=== PATIENT | female | born 1955 | race Caucasian/White ===

== ENCOUNTER 2024-07-20 19:34 | Emergency (ER) | payer MEDICARE, SELFPAY ==
--- NOTE | ~2024-07-20 | XR_ITS ---
CLINICAL HISTORY: pain 3 view, pelvis and left hip Comparison: None Findings: There is no fracture or dislocation. Joint spaces appear normal. No lytic or sclerotic lesion is seen. There is lower lumbar facet osteoarthritis. IMPRESSION: No acute findings. This document has been electronically signed by: Dustin Lindsay MD on 07/20/2024 23:27:05
[2024-07-20 19:56] VITALS: BP 156/80; PULSE 93; RESP 22; TEMP 36.8; O2SAT 95
[2024-07-20 20:00] VITALS: BMI 22.0
--- NOTE | 2024-07-20 20:18 | ECG_ITS ---
Test Reason : EPIGASTRIC PAIN Blood Pressure : */* mmHG Vent. Rate : 96 BPM Atrial Rate : 96 BPM P-R Int : 114 ms QRS Dur : 66 ms QT Int : 338 ms P-R-T Axes : 24 8 32 degrees QTcB Int : 427 ms Artifact in tracing Normal sinus rhythm Normal ECG No previous ECGs available Referred By: Anjana Jimenez Electronically Signed By: DAMIAN TREVIZO
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
[2024-07-20 21:27] LABS: MANUAL DIFF FLAG NO
[2024-07-20 21:29] LABS: Basophils Absolute Auto 0.1 X10*3/uL (0.0-0.2); Basophils Percent Auto 0.7 % (0-2); Eosinophils Absolute Auto 0.3 X10*3/uL (0.0-0.4); Eosinophils Percent Auto 2.4 % (0-4); Hematocrit 35.6 % (37.0-47.0); Hemoglobin 12.3 g/dl (12.0-16.0); Imm Gran Abs Auto 0.04 X10*3/uL (0.00-0.03); Imm Gran Pct Auto 0.3 % (0.0-0.4); Lymphocytes Absolute Auto 4.1 X10*3/uL (1.2-4.9); Lymphocytes Percent Auto 35.1 % (20-40); Mean Corpuscular HGB Conc 34.6 g/dl (31.0-35.0); Mean Corpuscular Volume 95.4 fL (80.0-98.0); Mean Platelet Volume 9.3 fL (9.4-12.3); Monocytes Percent Auto 8.8 % (2-11); Neutrophils Absolute Auto 6.1 x10*3/uL (2.0-8.3); Neutrophils Percent Auto 52.7 % (45-73); Platelet Count 334 X10*3/uL (160-400); Red Blood Count 3.73 X10*6/uL (4.20-5.50); Red Cell Distribution Width 13.2 % (11.0-16.0); White Blood Count 11.6 X10*3/uL (4.8-10.8)
[2024-07-20 21:32] LABS: Appearance Urine Cloudy; Color Urine Yellow; Glucose Urine UA Negative (Negative); Leukocyte Esterase Urine Moderate (2+) (Negative); Nitrite Urine Negative (Negative); PH 5.5 (5.0-9.0); Specific Gravity - Urine 1.025 (1.005-1.025); UMIC TRIGGER UACC YES; Urine Blood Negative (Negative); Urine Ketones Trace mg/dL (Negative); Urine Protein Trace mg/dL (Neg-Trace)
[2024-07-20 21:44] LABS: Alanine Aminotransferase 22 U/L (0-31); Albumin Level 4.5 g/dL (3.5-5.0); Alkaline Phosphatase 99 U/L (39-117); Anion Gap 15 (12-20); Aspartate Amino Transferase 34 U/L (5-31); Bilirubin Direct 0.1 mg/dL (0.0-0.5); Bilirubin Total 0.4 mg/dL (0.0-1.0); Blood Urea Nitrogen 24 mg/dL (9-16); Calcium 10.3 mg/dL (8.4-10.2); Carbon Dioxide 22 mmol/L (22-29); Chloride 109 mmol/L (96-108); Creatinine Clr Calc Pharmacy 35.1; Estimated Glomerular Filt Rate 46; Glucose Random 92 mg/dL (60-115); Lipase 26 U/L (8-78); Magnesium 2.4 mg/dL (1.6-2.6); Potassium 4.3 mmol/L (3.3-5.1); Sodium 142 mmol/L (135-145); Total Protein 8.2 g/dL (6.5-8.0)
[2024-07-20 21:52] LABS: Bacteria Urine 1+ (None Seen); Granular Casts Urine Present; UACC Culture Trigger YES
[2024-07-20] MEDS: Acetaminophen 325 MG TABLET 975 MG PO (22:18)
[2024-07-21 00:14] VITALS: BP 169/97; PULSE 93; RESP 20; TEMP 36.8; O2SAT 96
[2024-07-21 01:13] VITALS: BP 169/97; PULSE 93; RESP 20; TEMP 36.8; O2SAT 96
--- NOTE | 2024-07-21 01:23 | PC.NURSE ---
nurse Refugio at [facility] aware of pt's UTI dx and dc plan to return to facility. 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 pt resting.
[2024-07-21] MEDS: Melatonin 3 MG TABLET 6 MG PO (01:48)
[2024-07-21] MEDS: HaloperidoL 5 MG TABLET PO (01:48)
[2024-07-21] MEDS: diphenhydrAMINE HCL 25 MG CAPSULE 50 MG PO (01:49)
== END 2024-07-21 02:50 | disposition home or self-care (01) ==
PROVIDERS: Physician Assistant Medical; Emergency Provider Emergency Medicine
DX: N39.0 Urinary tract infection, site not specified (principal); R10.9 Unspecified abdominal pain
CPT/HCPCS: 36415; 73502; 80048; 80076; 81001; 83690; 83735; 84484; 85025; 87086; 93005; 99283; 99285

== ENCOUNTER → 2024-07-20 20:18 | Outpatient (BNV) | payer MEDICARE, SELFPAY | PROVIDERS: Emergency Provider Emergency Medicine; Visit Provider Internal Medicine | DX: R10.13 Epigastric pain (principal) | CPT/HCPCS: 93010 ==

== ENCOUNTER → 2024-07-20 20:40 | Outpatient (BNV) | payer MEDICARE, SELFPAY | PROVIDERS: Emergency Provider Emergency Medicine; Visit Provider Radiology Diagnostic Radiology | DX: M25.552 Pain in left hip (principal) | CPT/HCPCS: 73502 ==